=== PATIENT | female | born 1935 | race Caucasian/White ===

== ENCOUNTER 2017-09-27 23:31 | Observation (INO) | payer SELFPAY ==
[~2017-09-27] VITALS: Ht 152.4 cm; Wt 55.8 kg
[~2017-09-27 23:31] MED LIST: ALPR.25 PO; HYDACE5 PO
[2017-09-28 02:24] LABS: Source, Urine Catheter
[2017-09-28 02:26] LABS: Bilirubin, Urine Neg (Neg); Blood, Urine 1+ (Neg); Glucose Qualitative, Urine Neg (Neg); Ketones, Urine Neg (Neg); Leukocyte Esterase, Urine 1+ (Neg); Nitrite, Urine Neg (Neg); Protein, Urine 1+ (Neg); Specific Gravity, Urine 1.015 (1.003-1.022); Urobilinogen, Urine 1+ (Normal)
[2017-09-28 02:28] LABS: Appearance, Urine Clear (Clear); Color, Urine Amber (P-Yellow)
[2017-09-28 02:32] LABS: Bacteria Mod /hpf; Squamous Epithelial Cells Not Seen /hpf (Few)
[2017-09-28 02:57] LABS: BASOPHILS ABSOLUTE AUTO 0.02 K/mm3 (0.00-0.23); BASOPHILS PERCENT AUTO 0 % (0-2); EOSINOPHILS ABSOLUTE AUTO 0.16 K/mm3 (0.00-0.68); EOSINOPHILS PERCENT AUTO 2 % (0-6); Hematocrit 39.5 % (33.0-51.0); IMMATURE GRAN ABSOLUTE AUTO 0.02 K/mm3 (0.00-0.10); IMMATURE GRAN PERCENT AUTO 0 % (0-1); LYMPHOCYTES ABSOLUTE AUTO 1.74 K/mm3 (0.84-5.20); LYMPHOCYTES PERCENT AUTO 25 % (21-46); MONOCYTES PERCENT AUTO 9 % (4-13); Mean Corpuscular HGB 31.4 pg (26.0-34.0); Mean Corpuscular HGB Conc 32.9 g/dL (31.5-36.5); Mean Corpuscular Volume 95 fL (80-100); Mean Platelet Volume 10.6 fL (9.1-12.4); NEUTROPHILS ABSOLUTE AUTO 4.36 K/mm3 (1.96-9.15); NEUTROPHILS PERCENT AUTO 63 % (41-73); Platelet Count 232 K/mm3 (150-400); RDW Coefficient Variation 13.2 % (11.7-14.2); RDW Standard Deviation 46.4 fL (35.1-46.3); Red Blood Cell Count 4.14 M/mm3 (3.80-5.20)
[2017-09-28 03:14] LABS: Alanine Aminotransfer (ALT/SGP 27 U/L (12-78); Albumin, Blood 3.2 g/dL (3.4-5.0); Albumin/Globulin Ratio 0.9 (0.8-1.8); Alk Phos 84 U/L (50-136); Anion Gap 7 mmol/L (6-16); Aspartate Aminotrans (AST/SGOT 23 U/L (12-37); Bilirubin, Total 0.4 mg/dL (0.1-1.0); Blood Urea Nitrogen 16 mg/dL (8-24); Bun/Creatinine Ratio 28.2 (12.0-20.0); CO2, Blood 27 mmol/L (21-32); Calcium, Blood 8.5 mg/dL (8.5-10.1); Chloride, Blood 109 mmol/L (98-108); Creatinine, Blood 0.57 mg/dL (0.40-1.00); Globulin, Blood 3.4 g/dL (2.2-4.0); Glomerular Filtration Rate >60 (60-); Glucose, Blood 95 mg/dL (70-99); Potassium, Blood 3.2 mmol/L (3.5-5.5); Sodium, Blood 143 mmol/L (136-145); Total Protein, Blood 6.6 g/dL (6.4-8.2)
[2017-09-28 05:22] LABS: Creatine Kinase MB 4.2 ng/mL (0.0-3.6); Creatine Kinase MB Index 1.7 (0.0-4.0)
[2017-09-29 06:16] LABS: Anion Gap 9 mmol/L (6-16); Blood Urea Nitrogen 12 mg/dL (8-24); CO2, Blood 21 mmol/L (21-32); Calcium, Blood 8.4 mg/dL (8.5-10.1); Chloride, Blood 110 mmol/L (98-108); Creatinine, Blood 0.63 mg/dL (0.40-1.00); Glomerular Filtration Rate >60 (60-); Glucose, Blood 87 mg/dL (70-99); Potassium, Blood 4.1 mmol/L (3.5-5.5); Sodium, Blood 140 mmol/L (136-145)
[2017-09-29 17:00] LABS: Free Thyroxine 1.1 ng/dL (0.70-1.60); Magnesium, Blood 1.7 mg/dL (1.6-2.4)
[2017-09-29 17:19] LABS: Thyroid Stimulating Hormone 2.47 uIU/mL (0.360-4.800)
[2017-09-30 05:30] LABS: BASOPHILS ABSOLUTE AUTO 0.02 K/mm3 (0.00-0.23); BASOPHILS PERCENT AUTO 0 % (0-2); EOSINOPHILS ABSOLUTE AUTO 0.18 K/mm3 (0.00-0.68); EOSINOPHILS PERCENT AUTO 3 % (0-6); Hematocrit 38.7 % (33.0-51.0); Hemoglobin 12.6 g/dL (11.5-16.0); IMMATURE GRAN ABSOLUTE AUTO 0.02 K/mm3 (0.00-0.10); IMMATURE GRAN PERCENT AUTO 0 % (0-1); LYMPHOCYTES ABSOLUTE AUTO 1.46 K/mm3 (0.84-5.20); LYMPHOCYTES PERCENT AUTO 25 % (21-46); MONOCYTES ABSOLUTE AUTO 0.54 K/mm3 (0.16-1.47); MONOCYTES PERCENT AUTO 9 % (4-13); Mean Corpuscular HGB 31.4 pg (26.0-34.0); Mean Corpuscular HGB Conc 32.6 g/dL (31.5-36.5); Mean Corpuscular Volume 97 fL (80-100); Mean Platelet Volume 11.2 fL (9.1-12.4); NEUTROPHILS PERCENT AUTO 62 % (41-73); Platelet Count 220 K/mm3 (150-400); RDW Coefficient Variation 13.2 % (11.7-14.2); RDW Standard Deviation 46.8 fL (35.1-46.3); Red Blood Cell Count 4.01 M/mm3 (3.80-5.20); White Blood Cell Count 5.82 K/mm3 (4.00-11.30)
[2017-09-30 05:49] LABS: Alanine Aminotransfer (ALT/SGP 21 U/L (12-78); Albumin, Blood 2.9 g/dL (3.4-5.0); Albumin/Globulin Ratio 0.9 (0.8-1.8); Alk Phos 71 U/L (50-136); Anion Gap 6 mmol/L (6-16); Aspartate Aminotrans (AST/SGOT 14 U/L (12-37); Bilirubin, Total 0.5 mg/dL (0.1-1.0); Blood Urea Nitrogen 11 mg/dL (8-24); Bun/Creatinine Ratio 19.5 (12.0-20.0); CO2, Blood 26 mmol/L (21-32); Calcium, Blood 8.6 mg/dL (8.5-10.1); Chloride, Blood 110 mmol/L (98-108); Creatinine, Blood 0.57 mg/dL (0.40-1.00); Globulin, Blood 3.3 g/dL (2.2-4.0); Glomerular Filtration Rate >60 (60-); Glucose, Blood 86 mg/dL (70-99); Potassium, Blood 3.8 mmol/L (3.5-5.5); Sodium, Blood 142 mmol/L (136-145); Total Protein, Blood 6.2 g/dL (6.4-8.2)
[2017-10-02 06:34] LABS: Alanine Aminotransfer (ALT/SGP 15 U/L (12-78); Albumin/Globulin Ratio 0.8 (0.8-1.8); Alk Phos 69 U/L (50-136); Anion Gap 8 mmol/L (6-16); Aspartate Aminotrans (AST/SGOT 29 U/L (12-37); Bilirubin, Total 0.4 mg/dL (0.1-1.0); Blood Urea Nitrogen 12 mg/dL (8-24); Bun/Creatinine Ratio 20.8 (12.0-20.0); CO2, Blood 27 mmol/L (21-32); Calcium, Blood 8.8 mg/dL (8.5-10.1); Chloride, Blood 108 mmol/L (98-108); Creatinine, Blood 0.58 mg/dL (0.40-1.00); Globulin, Blood 3.6 g/dL (2.2-4.0); Glomerular Filtration Rate >60 (60-); Glucose, Blood 87 mg/dL (70-99); Potassium, Blood 3.8 mmol/L (3.5-5.5); Sodium, Blood 143 mmol/L (136-145); Total Protein, Blood 6.6 g/dL (6.4-8.2)
[2017-10-03] MEDS ORDERED: LOSA25 PO (15:14)
[2017-10-03] MEDS ORDERED: NICO21TP TOP (15:15)
== END 2017-10-03 19:51 | disposition home or self-care (01) ==
LOC: ER 23:31 → MEDS 09-28 04:30
PROVIDERS: Emergency Medicine; Internal Medicine
DX: R53.1 Weakness (principal); R27.8 Other lack of coordination; S22.31XA Fracture of one rib, right side, initial encounter for closed fracture; E86.0 Dehydration; I10 Essential (primary) hypertension; G20 Parkinson's disease; G89.29 Other chronic pain; E87.6 Hypokalemia; F17.210 Nicotine dependence, cigarettes, uncomplicated; M54.30 Sciatica, unspecified side; Z88.8 Allergy status to other drugs, medicaments and biological substances; Z79.899 Other long term (current) drug therapy; W19.XXXA Unspecified fall, initial encounter
CPT/HCPCS: 36415; 70551; 71046; 80048; 80053; 81001; 82550; 82553; 82607; 82746; 83735; 84439; 84443; 84484; 85025; 85651; 87086; 93005; 93010; 96361; 96372; 96374; 96375; 97110; 97116; 97161; 97166; 97530; 97535; 99285-25; G0378; G8978; G8979; G8987; G8988; J0360; J0696; J1650; J2405; J3480; J7030; P9612

== ENCOUNTER 2019-01-11 17:45 | Inpatient (IN) | payer MEDICARE ==
[~2019-01-11] VITALS: Ht 152.4 cm; Wt 48.5 kg
[~2019-01-11 17:45] MED LIST changes: +LOSA25 PO; +NICO21TP TOP
[2019-01-11 18:14] LABS: BASOPHILS ABSOLUTE AUTO 0.03 K/mm3 (0.00-0.23); BASOPHILS PERCENT AUTO 1 % (0-2); EOSINOPHILS ABSOLUTE AUTO 0.16 K/mm3 (0.00-0.68); EOSINOPHILS PERCENT AUTO 3 % (0-6); Hematocrit 39.6 % (33.0-51.0); Hemoglobin 12.5 g/dL (11.5-16.0); IMMATURE GRAN ABSOLUTE AUTO 0.01 K/mm3 (0.00-0.10); IMMATURE GRAN PERCENT AUTO 0 % (0-1); LYMPHOCYTES ABSOLUTE AUTO 1.38 K/mm3 (0.84-5.20); LYMPHOCYTES PERCENT AUTO 22 % (21-46); MONOCYTES ABSOLUTE AUTO 0.52 K/mm3 (0.16-1.47); MONOCYTES PERCENT AUTO 8 % (4-13); Mean Corpuscular HGB 31.4 pg (26.0-34.0); Mean Corpuscular HGB Conc 31.6 g/dL (31.5-36.5); Mean Corpuscular Volume 100 fL (80-100); Mean Platelet Volume 10.4 fL (9.1-12.4); NEUTROPHILS ABSOLUTE AUTO 4.08 K/mm3 (1.96-9.15); NEUTROPHILS PERCENT AUTO 66 % (41-73); Platelet Count 224 K/mm3 (150-400); RDW Coefficient Variation 12.4 % (11.7-14.2); RDW Standard Deviation 45.8 fL (35.1-46.3); Red Blood Cell Count 3.98 M/mm3 (3.80-5.20); White Blood Cell Count 6.18 K/mm3 (4.00-11.30)
[2019-01-11 18:37] LABS: Source, Urine Catheter
[2019-01-11 18:42] LABS: Appearance, Urine Hazy (Clear); Bilirubin, Urine Neg (Neg); Blood, Urine 3+ (Neg); Color, Urine Yellow (P-Yellow); Glucose Qualitative, Urine Neg (Neg); Ketones, Urine Neg (Neg); Leukocyte Esterase, Urine 1+ (Neg); Nitrite, Urine Neg (Neg); Protein, Urine 1+ (Neg); Specific Gravity, Urine 1.015 (1.003-1.022); Urobilinogen, Urine 1+ (Normal); pH, Urine 6.5 (5.0-8.0)
[2019-01-11 18:48] LABS: Alanine Aminotransfer (ALT/SGP 14 U/L (12-78); Albumin/Globulin Ratio 0.9 (0.8-1.8); Alk Phos 73 U/L (50-136); Anion Gap 3 mmol/L (6-16); Aspartate Aminotrans (AST/SGOT 12 U/L (12-37); Bilirubin, Total 0.4 mg/dL (0.1-1.0); Blood Urea Nitrogen 20 mg/dL (8-24); Bun/Creatinine Ratio 29.9 (12.0-20.0); CO2, Blood 27 mmol/L (21-32); Calcium, Blood 8.1 mg/dL (8.5-10.1); Chloride, Blood 113 mmol/L (98-108); Creatinine, Blood 0.67 mg/dL (0.40-1.00); Globulin, Blood 3.2 g/dL (2.2-4.0); Glomerular Filtration Rate >60 (60-); Glucose, Blood 90 mg/dL (70-99); Potassium, Blood 3.7 mmol/L (3.5-5.5); Sodium, Blood 143 mmol/L (136-145); Total Protein, Blood 6.2 g/dL (6.4-8.2)
[2019-01-11 18:53] LABS: Bacteria Many /hpf; Squamous Epithelial Cells Rare /hpf (Few); Yeast/Fungi Urine Few /hpf
[2019-01-12 04:46] LABS: BASOPHILS ABSOLUTE AUTO 0.02 K/mm3 (0.00-0.23); BASOPHILS PERCENT AUTO 0 % (0-2); EOSINOPHILS ABSOLUTE AUTO 0.19 K/mm3 (0.00-0.68); EOSINOPHILS PERCENT AUTO 3 % (0-6); Hematocrit 37.2 % (33.0-51.0); Hemoglobin 11.9 g/dL (11.5-16.0); IMMATURE GRAN ABSOLUTE AUTO 0.01 K/mm3 (0.00-0.10); IMMATURE GRAN PERCENT AUTO 0 % (0-1); LYMPHOCYTES ABSOLUTE AUTO 1.56 K/mm3 (0.84-5.20); LYMPHOCYTES PERCENT AUTO 25 % (21-46); MONOCYTES ABSOLUTE AUTO 0.45 K/mm3 (0.16-1.47); MONOCYTES PERCENT AUTO 7 % (4-13); Mean Corpuscular HGB 30.9 pg (26.0-34.0); Mean Platelet Volume 11.1 fL (9.1-12.4); NEUTROPHILS ABSOLUTE AUTO 3.96 K/mm3 (1.96-9.15); NEUTROPHILS PERCENT AUTO 64 % (41-73); Platelet Count 210 K/mm3 (150-400); RDW Coefficient Variation 12.3 % (11.7-14.2); RDW Standard Deviation 43.7 fL (35.1-46.3); Red Blood Cell Count 3.85 M/mm3 (3.80-5.20); White Blood Cell Count 6.19 K/mm3 (4.00-11.30)
[2019-01-12 04:48] LABS: Mean Corpuscular Volume 97 fL (80-100)
[2019-01-12 05:09] LABS: Anion Gap 6 mmol/L (6-16); Blood Urea Nitrogen 18 mg/dL (8-24); Bun/Creatinine Ratio 36.7 (12.0-20.0); CO2, Blood 25 mmol/L (21-32); Calcium, Blood 8.4 mg/dL (8.5-10.1); Chloride, Blood 111 mmol/L (98-108); Creatinine, Blood 0.49 mg/dL (0.40-1.00); Glomerular Filtration Rate >60 (60-); Glucose, Blood 102 mg/dL (70-99); Potassium, Blood 3.6 mmol/L (3.5-5.5); Sodium, Blood 142 mmol/L (136-145)
--- NOTE | 2019-01-12 18:33 | NUR ---
SHIFT SUMMARY- PT IS PLESANT AND COOPERATIVE. SHE IS SLOW TO RESPOND. PT WENT TO IMAGING FOR CT SCAN THIS AFTERNOON.
--- NOTE | 2019-01-13 04:58 | NUR ---
Shift Summary Patient slept intermittently overnight. She remains oriented but slow to respond. She states she prefers female caregivers for toileting and brief changes so this was accomodated.
[2019-01-13 05:42] LABS: BASOPHILS ABSOLUTE AUTO 0.02 K/mm3 (0.00-0.23); BASOPHILS PERCENT AUTO 0 % (0-2); EOSINOPHILS ABSOLUTE AUTO 0.21 K/mm3 (0.00-0.68); EOSINOPHILS PERCENT AUTO 3 % (0-6); Hematocrit 38.8 % (33.0-51.0); Hemoglobin 12.5 g/dL (11.5-16.0); IMMATURE GRAN ABSOLUTE AUTO 0.02 K/mm3 (0.00-0.10); IMMATURE GRAN PERCENT AUTO 0 % (0-1); LYMPHOCYTES ABSOLUTE AUTO 1.93 K/mm3 (0.84-5.20); LYMPHOCYTES PERCENT AUTO 31 % (21-46); MONOCYTES ABSOLUTE AUTO 0.52 K/mm3 (0.16-1.47); MONOCYTES PERCENT AUTO 8 % (4-13); Mean Corpuscular HGB Conc 32.2 g/dL (31.5-36.5); Mean Corpuscular Volume 96 fL (80-100); Mean Platelet Volume 10.9 fL (9.1-12.4); NEUTROPHILS ABSOLUTE AUTO 3.58 K/mm3 (1.96-9.15); NEUTROPHILS PERCENT AUTO 57 % (41-73); Platelet Count 218 K/mm3 (150-400); RDW Coefficient Variation 12.2 % (11.7-14.2); RDW Standard Deviation 43.6 fL (35.1-46.3); Red Blood Cell Count 4.03 M/mm3 (3.80-5.20); White Blood Cell Count 6.28 K/mm3 (4.00-11.30)
[2019-01-13 06:11] LABS: Anion Gap 7 mmol/L (6-16); Blood Urea Nitrogen 13 mg/dL (8-24); Bun/Creatinine Ratio 29.6 (12.0-20.0); CO2, Blood 23 mmol/L (21-32); Calcium, Blood 8.8 mg/dL (8.5-10.1); Chloride, Blood 112 mmol/L (98-108); Creatinine, Blood 0.44 mg/dL (0.40-1.00); Glomerular Filtration Rate >60 (60-); Glucose, Blood 85 mg/dL (70-99); Magnesium, Blood 1.8 mg/dL (1.6-2.4); Potassium, Blood 3.9 mmol/L (3.5-5.5); Sodium, Blood 142 mmol/L (136-145)
[2019-01-13 08:15] LABS: International Normalized Ratio 0.97; Prothrombin Time Results 10.3 Sec (9.7-11.5)
--- NOTE | 2019-01-13 17:16 | NUR ---
SHIFT SUMMARY-PT A/O, PLESANT, COOPERATIVE. PT IS SLOW TO RESPOND BOTH IN SPEECH AND MOVEMENT. PT WENT FOR A BIOPSY OF AN INGUNAL LYMPHNODE, PT TOLERATED THE PROCEDURE WELL. PT HAS A GOOD APPETITE AND IS DRINKING WELL. PT SLEPT INTERMITENTLY THROUGHOUT THIS SHIFT. PT IS INCONTINENT.
--- NOTE | 2019-01-14 04:46 | NUR ---
SHIFT SUMMARY AOX4 JUST VERY SLOW TO RESPOND. LS CLEAR, DENIES SOB. NO C/O NAUSEA OR PAIN. INC. TELE READS SR IN THE 60'S WITH PAC'S. L FA - SL. BED ALARM FOR SAFETY. PLAN IS F/U WITH NEUROLOGIST FOR POSSIBLE PARKINSON'S. INGUINAL LUMP BIOPSY SITE IS C/D/I, NO DRESSING. POSSIBLE DC TODAY W/HH OR PLACEMENT.
[2019-01-14] MEDS ORDERED: SINEMET 25-1001 EACH PO (13:00)
[2019-01-14] MEDS ORDERED: ACET325 PO (13:01)
--- NOTE | 2019-01-14 15:28 | NUR ---
SPOKE WITH DR. ZARATE. PATIENT WILL NOT BE DISCHARGING AT THIS TIME. PATIENT WILL HAVE A SPEECH EVAL. PATIENT IS ALSO PENDING SAFE PLACEMENT AT THIS TIME PER DR. ZARATE THE SON IS REFUSING TO TAKE THIS PATIENT BACK HOME. PATIENT IS A 1 PERSON ASSIST TO BSC.
--- NOTE | 2019-01-14 15:42 | NUR ---
THIS RN ASKED PATIENT IF SHE FELT SAFE IN HER ROOM. PATIENT STATED THAT HER SON AND DAUGHTER IN LAW TAKE VERY GOOD CARE OF HER. THIS RN ASKED IF THEY HELP HER AT HOME. PATIENT STATED "YES THE HELP ME AT HOME".
--- NOTE | 2019-01-14 18:12 | NUR ---
SHIFT SUMMARY PATIENT WAS INTENDED TO D/C TODAY HOWEVER CARE MANAGEMENT SPOKE WITH SON (WHO PATIENT LIVES WITH) UNABLE TO CARE FOR PATIENT. CARE MANAGEMENT LOOKING INTO OTHER ARRANGEMENTS FOR THE PATIENT AT THIS TIME. PATIENT IS INCONTINENT AND TOILETING/SINAI CARE REQUIRED TO PREVENT SKIN BREAKDOWN. PT/OT EVAL. PATIENT REQUIRES ASSISTANCE FOR MOVEMENTS. R INGUINAL LUMP BIOPSY COMPLETE. PATIENT WILL HAVE A SWALLOW EVAL 01/15/19.
[2019-01-14 19:59] LABS: Performing Lab SYMBIODX; Test Name TISSUE BIOPSY
--- NOTE | 2019-01-15 03:53 | NUR ---
SHIFT SUMMARY NO ASSESSMENT CHANGES. NO C/O SOB, NAUSEA, OR PAIN. STILL SLOW TO RESPOND. VSS ON RA. L FA IV - SL. TYLENOL GIVEN @ [address] [facility] TODAY. WILL F/U WITH NEUROLOGIST FOR POSSIBLE PARKINSON'S. HOPEFULLY DC TODAY.
--- NOTE | 2019-01-15 18:22 | NUR ---
SHIFT SUMMARY PATIENT HAD US OF BLADDER. PATIENT ABLE TO MAKE HER NEEDS KNOWN. CALLS APPROPRIATELY. 1 PERSON ASSIST TO BSC. SPEECH THERAPY INVOLVED. MEDS WHOLE 1 AT A TIME IN APPLESAUCE, THICKENED LIQUIDS. TOLERATING DIET WITHOUT ISSUES.
--- NOTE | 2019-01-16 00:47 | NUR ---
BEGINNING SHIFT SUMMARY ASUMED CARE OF PT AT 1900. PT WAS LYING IN BED RESTING. PT IS A/O BUT SLOW TO RESPOND, PT BEING EVALUATED FOR PARKINSONS DISEASE. HEART SOUNDS REGULAR, PERIPHERAL PULSES STRONG, 20G IV IN R FOREARM, FEET COOL TO TOUCH. LUNG SOUNDS CLEAR, DENIES SOB, RA. BOWEL TONES HYPERACTIVE, PT ATE ALL HER DINNER, SPEECH THERAPY SAW HER TODAY AND [facility]/ NO MIXED CONSISTNACY/ NO STRAWS/ AND NECTAR THICK CONSISTANCY, PT TOOK HER PILLS ONE AT A TIME WITH THICKEND WATER. PT URINE IS CLEAR AND YELLOW, DENIES PAIN WITH URINATION. PT IS A ONE PERSON GAITBELT AND NEEDS DIRECTION WHEN TRANSFERING. PT C/O PAIN ONCE IN HER SHOULDERS, MEDICATED PER EMAR. PT IS CURRENTLY SLEEPING, CALL LIGHT IN REACH, BED IN LOWEST POSITION, WILL CONTINUE TO MONITOR.
--- NOTE | 2019-01-16 05:09 | NUR ---
END SHIFT SUMMARY NO ACUTE CHANGES NOTED T/O THE NIGHT. PT DENIES PAIN AT THIS TIME. PT WAS CONTINENT ALL NIGHT. DENIES BURNING WITH URINATION. PT IS CURRENTLY SLEEPING, CALL LIGHT IN REACH, BED IN LOWEST POSITION, WILL CONTINUE TO MONITOR UNTIL DAYSHIFT NURSE ARRIVES.
--- NOTE | 2019-01-16 17:33 | NUR ---
Spiritual Care inital note: Mrs. Katz was dismissive of pastoral care, saying "Don't waste your breath. I'm not mandaen." She is looking forward to rehab and expects to recover. She says she has strong family support and denied concerns.
--- NOTE | 2019-01-16 18:50 | NUR ---
SHIFT SUMMARY PT EATING AND DRINKING. PT BEEN ASSISTED WITH ADL'S PRN. PT BEEN ASSISTED TO BSC BY FEMALE STRUCTURAL STEEL WORKER APPRENTICE. EMPLOYMENT COORDINATOR REPORTED COLD HEADER OPERATOR ASSISTING WITH PLACEMENT.
--- NOTE | 2019-01-16 21:30 | NUR ---
BEGINNING SHIFT SUMMARY ASSUMED CARE OF PT AT 1900. PT IS LYING IN BED WATCHING TV WITH THE VOLUME UP. PT C/O SHOULDER PAIN, MEDICATED PER EMAR. HEART RATE IRREGULAR, FINE CRACKLES HEARD AT THE BASES. PT HAS MELILEX DRESSINGS ON HEELS FOR PRECAUTIONS. CALL LIGHT IN REACH, BED IN LOWEST POSTION, WILL CONTINUE TO MONITOR.
--- NOTE | 2019-01-17 04:42 | NUR ---
END SHIFT SUMMARY NO ACUTE CHANGES NOTED T/O THE NIGHT. PT SLEPT T/O THE NIGHT. PT WAS CONTINENT T/O THE NIGHT. PT DENIES PAIN OR SOB. PT WAS NOT ABLE TO PULL UP BLANKETS TO HER CHEST, PT NEED LOTS OF ASSISTANCE WITH ADLS. CALL LIGHT IN REACH, BED IN LOWEST POSTION, WILL CONTINUE TO MONITOR UNTIL DAYSHIFT NURSE ARRIVES.
--- NOTE | 2019-01-17 16:07 | NUR ---
SHIFT SUMMARY NO ACUTE CHANGES NOTED ON THIS SHIFT. ASSISTANCE PROVIDED TO PATIENT NEEDED. COOPERATIVE WITH STAFF. PATIENT IS AWAITING PLACEMENT FOR DISCHARGE. WILL CONTINUE TO MONITOR AND PROVIDE CARE NEEDED.
--- NOTE | 2019-01-18 06:08 | NUR ---
SHIFT SUMMARY NO ACUTE CHANGES OVERNIGHT. PT IS A&OX4, SLOW TO RESPOND. STIFF, RIGID, VERY SLOW MOVING c SLOW GAIT. PT SLEPT WELL THROUGH THE NIGHT. PT AWAITING PLACEMENT, WOKRING WITH ADMINISTRATIVE AIDE FOR SAFE D/C PLAN. WILL CONT TO MONITOR AND PROVIDE CARE UNTIL PRESUMED BY ONCOMING RN.
--- NOTE | 2019-01-18 16:14 | NUR ---
SHIFT SUMMARY: PT HAS BEEN A/O X 4 WITH NO C/O OF DISCOMFORT. SHE IS PLEASANT AND COOPERATIVE WITH CARE. PT REMAINS ON A [facility] SOFT DIET WITH NECTAR THICK LIQUIDS AND SHE HAS BEEN UP TO CHAIR FOR MEALS WITH X 1 ASSIST FOR FEEDING. PT IS ABLE TO MAKE HER NEEDS KNOWN AND USES CALL LIGHT APPROPRIATELY WHEN NEEDED. SHE IS RESTING IN BED WITH HER CALL LIGHT IN REACH.
--- NOTE | 2019-01-19 04:36 | NUR ---
SHIFT SUMMARY PATIENT IS PLEASANT BUT HAS A FLAT AFFECT. SHE IS ALERT AND ORIENTED. SLEPT WELL ALL NIGHT. IV IN HER RIGHT FOREARM PATENT AND FLUSHES. BED IN LOWEST POSITION WITH WHEELS LOCKED. CALL LIGHT WITHIN REACH. REPORT GIVEN TO ONCOMING RN.
--- NOTE | 2019-01-19 09:44 | NUR ---
PATIENT WAS UP IN THE CHAIR FOR BREAKFAST. SHE TOOK HER MORNING MEDICATIONS WITH APPLESAUCE. NO COMPLAINTS OF PAIN. MAKES HER NEEDS KNOWN. WILL CONTINUE TO MONITOR.
--- NOTE | 2019-01-19 16:57 | NUR ---
PATIENT IS SLEEPING IN BED AT THE MOMENT. SHE COMPLAINED OF RIGHT HIP PAIN EARLIER TODAY, TREATED PER EMAR. PAIN RESOLVED. PATIENT IS UP TO THE CHAIR FOR MEALS. UP TO THE BSC TO VOID. SHE HAS A FLAT AFFECT. WILL CONTINUE TO MONITOR.
--- NOTE | 2019-01-20 05:31 | NUR ---
SHIFT SUMMARY PT'S LS CLEAR T/O AND BT+ X4. PT WATCHING TV T/O THE EVENING. APPEARS TO BE SLEEPING T/O THE NIGHT. SHE C/O L SHOULDER AND R HIP PAIN AND ASKED FOR TYLENOL. HER PAIN WENT FROM 10/10 TO 7/10 AFTER TYLENOL. APPEARS TO BE SLEEPING MOST OF THE NIGHT. NO OTHER C/O PAIN OR DISCOMFORT.
--- NOTE | 2019-01-20 17:47 | NUR ---
Shift Summary A/O, cooperative with care. Pt has been up in chair for meals, needs encouraging to pour Ensures into cup as pt states she is unable to do so. When this nurse encouraged to show, pt was able to demonstrate without spilling. Pt states "I have been independent all my life and I don't want to be anymore." Urine has foul odor, yellow and not completely clear color. C/O L shoulder pain, medicated with aspercreme. No other concerns. Will continue to monitor.
--- NOTE | 2019-01-21 04:43 | NUR ---
SHIFT SUMMARY. A/OX3. MAKES NEEDS KNOWN. PT STATES, "I CAN'T WALK" BEFORE TAKING SMALL SHUFFLING STEPS WITH 1 ASSIST. SLOW AND HESITANT IN MOVEMENTS. SEEMS TO THINK SHE IS LESS ABLE THAN SHE REALLY IS. TYLENOL AND TOPICAL ASPERCREAM FOR L SHOULDER PAIN. PT STATES HELPFUL. REPORTS DYSURIA, URINE APPEARS CLOUDY AND IS FOUL SMELLING TONIGHT. REMAINS AFEB. BED LOW, CALL BUTTON IN REACH, BED ALARM ON.
[2019-01-21 14:27] LABS: BASOPHILS ABSOLUTE AUTO 0.01 K/mm3 (0.00-0.23); BASOPHILS PERCENT AUTO 0 % (0-2); EOSINOPHILS PERCENT AUTO 3 % (0-6); Hematocrit 40.9 % (33.0-51.0); Hemoglobin 12.8 g/dL (11.5-16.0); IMMATURE GRAN ABSOLUTE AUTO 0.03 K/mm3 (0.00-0.10); IMMATURE GRAN PERCENT AUTO 1 % (0-1); LYMPHOCYTES ABSOLUTE AUTO 1.66 K/mm3 (0.84-5.20); LYMPHOCYTES PERCENT AUTO 27 % (21-46); MONOCYTES ABSOLUTE AUTO 0.43 K/mm3 (0.16-1.47); MONOCYTES PERCENT AUTO 7 % (4-13); Mean Corpuscular HGB Conc 31.3 g/dL (31.5-36.5); Mean Platelet Volume 10.7 fL (9.1-12.4); NEUTROPHILS ABSOLUTE AUTO 3.72 K/mm3 (1.96-9.15); NEUTROPHILS PERCENT AUTO 62 % (41-73); Platelet Count 274 K/mm3 (150-400); RDW Standard Deviation 46.7 fL (35.1-46.3); Red Blood Cell Count 4.13 M/mm3 (3.80-5.20); White Blood Cell Count 6.05 K/mm3 (4.00-11.30)
[2019-01-21 14:28] LABS: Mean Corpuscular Volume 99 fL (80-100)
[2019-01-21 14:38] LABS: Anion Gap 7 mmol/L (6-16); Blood Urea Nitrogen 26 mg/dL (8-24); Bun/Creatinine Ratio 55.7 (12.0-20.0); CO2, Blood 29 mmol/L (21-32); Chloride, Blood 106 mmol/L (98-108); Creatinine, Blood 0.47 mg/dL (0.40-1.00); Glomerular Filtration Rate >60 (60-); Glucose, Blood 105 mg/dL (70-99); Potassium, Blood 4.2 mmol/L (3.5-5.5); Sodium, Blood 142 mmol/L (136-145)
[2019-01-21 16:44] LABS: Bilirubin, Urine Neg (Neg); Blood, Urine Neg (Neg); Glucose Qualitative, Urine Neg (Neg); Ketones, Urine Neg (Neg); Leukocyte Esterase, Urine 1+ (Neg); Nitrite, Urine Pos (Neg); Protein, Urine Neg (Neg); Urobilinogen, Urine NORM (Normal)
[2019-01-21 16:52] LABS: Appearance, Urine Hazy (Clear); Color, Urine Yellow (P-Yellow)
[2019-01-21 16:53] LABS: Amorphous Mod (0-Heavy); Bacteria Many /hpf; Hyaline Casts 0-2 /lpf (0-2); Mucus Light (0-Heavy); Red Blood Cells, Urine 0-2 /hpf (0-2); Squamous Epithelial Cells Few /hpf (Few)
--- NOTE | 2019-01-21 17:50 | NUR ---
Shift Summary Patient has been pleasant and cooperative. Pt does not want to take Sinemet because she believes she does not have Parkinson's and it "makes me tired." This RN encouraged pt to take Sinemet, patient was accepting of this for now but would like to discuss this with the doctor. Medicated for 8/10 pain x1 with Tylenol for which pain decreased to 5/10 on left shoulder. UA sent to lab for culture. No other changes this shift. Will continue to monitor.
--- NOTE | 2019-01-22 18:31 | NUR ---
SHIFT SUMMARY: NO ACUTE CHANGES TO REPORT THIS SHIFT. PT A&O; CALM AND COOPERATIVE WITH CARE. MEDICATED FOR L SHOULDER PAIN PER EMAR. PATIENT UP WITH 1-ASSIST TO BSC; PATIENT REQUIRES FREQUENT ENCOURAGEMENT TO PARTICIPATE IN CARE. AWAITING RESULTS OF URINE CULTURE. PT & OT FOLLOWING. AWAITING PLACEMENT. WCTM.
--- NOTE | 2019-01-23 04:27 | NUR ---
Shift Summary Patient slept intermittently between cares. Encouraged fluids but she did not drink much. Assited to reposition.
--- NOTE | 2019-01-23 18:40 | NUR ---
SHIFT SUMMARY- PT HAS HAD NO ACUTE CHANGE T/O THE SHIFT, NO C/O PAIN, NO NAUSEA, PT ON ROOM AIR. PT IS A 1PA TO THE BSC AND THE RECLINER. PT REFUSED A SHOWER BUT RECIEVED A FULL BEDBATH TODAY. PT IS CURRENTLY AWAITING PLACEMENT. PT HAS REFUSED SINEMENT ALL DAY TODAY WELL YESTERDAY. PT STATED THE MED GIVES HER PARKINSONS SYMPTOMS. UNABLE TO EDUCATE HER ABOUT THE MED AND ITS USE. PT IS VERY SLOW TO RESPOND BUT SEEMS A&O X4.
--- NOTE | 2019-01-23 20:31 | NUR ---
PHYSICIAN COMMUNICATION CONTACTED THE FIELD CROP FARMER PHYSICIAN TO LET HER KNOW THAT THE PATIENT HAD A URINE CULTURE COME BACK TODAY THAT WAS POSITIVE FOR ESBL. AND THAT SHE HAD A ROUND OF ROCEPHIN FROM 01/12-01/15. BART ORDERED CONTACT ISOLATION AND READ THROUGH SOME PREVIOUS 'S NOTES AND SAID THAT SINCE THE BACTERIA WAS COLONIZED THERE WAS NO PLAN TO GO FORWARD WITH ADDITIONAL ANTIBIOTICS.
--- NOTE | 2019-01-24 06:11 | NUR ---
SHIFT SUMMARY PATIENT ALERT AND ORIENTED. SHE HAD PAIN IN HER SHOULDERS FOR WHICH SHE WAS MEDICATED WITH PRN TYLENOL. SHE WAS PLACED ON CONTACT PRECAUTIONS DUE TO ESBL IN HER URINE. SHE SLEPT WELL ALL NIGHT. IV PATENT AND FLUSHED. BED IN LOWEST POSITION WITH WHEELS LOCKED. CALL LIGHT WITHIN REACH. REPORT GIVEN TO ONCOMING RN.
--- NOTE | 2019-01-24 07:16 | NUR ---
ASSUMED CARE OF PT- BEDSIDE REPORT COMPLETED WITH NIGHT JESSICA BOSTON. PT ALERT AND ORIENTED, SLOW TO RESPOND, SLIGHTLY [place]. PT IS A 1PA TO COMODE AND CHAIR. PT IN BED SLEEPING AT THE TIME OF REPORT CALL LIGHT IN REACH NO S&S OF DISTRESS NOTED AT THIS TIME WILL CTM.
--- NOTE | 2019-01-24 15:42 | NUR ---
DISCHARGE NOTE- PT WAS GIVEN VERBAL AND WRITTEN DISCHARGE INSTRUCTIONS AND ACKNOWLEDGED UNDERSTANDING OF THEM. PT UNABLE TO SIGN DISCHARGE PAPERWORK. IV DC'D PRIOR TO DISCHARGE. PT TAKEN VIA TRANSPORT TO HER HOME WITH HOME HEALTH UPON DISCHARGE.
== END 2019-01-24 15:21 | disposition home health service (06) | DRG 629 ==
LOC: DELPENDDIS → ER 17:45 → MEDS 17:46 → ENPENDDIS 01-15 11:30 → MEDS 01-23 08:52
PROVIDERS: Emergency Medicine; Internal Medicine; ADMIT Internal Medicine
PROC: 07BH3ZX Excision of Right Inguinal Lymphatic, Percutaneous Approach, Diagnostic (ICD-10-PCS; principal; 2019-01-13)
DX: E86.0 Dehydration (principal); C82.90 Follicular lymphoma, unspecified, unspecified site; G20 Parkinson's disease; I10 Essential (primary) hypertension; N32.89 Other specified disorders of bladder; R82.81 Pyuria
CPT/HCPCS: 36415; 36416; 38505; 73030; 74177; 76705; 76857; 76942; 80048; 80053; 81001; 83735; 84443; 85025; 85610; 85730; 87077; 87086; 87186; 88305; 88341; 88342; 92526; 92610; 93005; 93010; 96361; 96365; 96372; 96376; 97110; 97116; 97162; 97166; 97530; 97535; 99285-25; A9270; G0378; J0696; J1650; J7030; Q9967